=== PATIENT | female | born 1990 | race Two or more races ===

== ENCOUNTER 2019-02-14 12:12 | Inpatient (IN) | payer OTHER ==
[~2019-02-14] VITALS: Ht 164 cm; Wt 81.7 kg
[2019-04-27] MEDS ORDERED: RINGERS SOLUTION,LACTATED 1,000 ML IV ONE (10:41)
[2019-04-27] MEDS ORDERED: PREN-217 PO (10:44)
[2019-04-27] MEDS ORDERED: CITRIC ACID/SODIUM CITRATE 30 ML SOLUTION UDCUP PO ONE (10:45)
[2019-04-27] MEDS ORDERED: METOCLOPRAMIDE HCL 5 MG/ML 2 ML VIAL IVP ONE (10:45)
[2019-04-27 11:24] VITALS: BP 115/75
[2019-04-27 11:27] LABS: BASOPHILS % (AUTO) 0.5 % (0.0-2.0); EOSINOPHILS % (AUTO) 0.4 % (1.0-6.0); HEMATOCRIT 30.1 % (36-46); HEMOGLOBIN 9.6 g/dL (12.0-16.0); LYMPHOCYTES # (AUTO) 1.7 K/uL (1.0-4.8); LYMPHOCYTES % (AUTO) 18.3 % (22.0-44.0); MEAN CORPUSCULAR HEMOGLOBIN 25.5 pg (26.0-34.0); MEAN CORPUSCULAR HGB CONC 31.9 G/dL (31.0-37.0); MEAN CORPUSCULAR VOLUME 80 fL (80-100); MONOCYTES # (AUTO) 0.6 K/uL (0.1-1.0); MONOCYTES % (AUTO) 5.9 % (2.0-9.0); NEUTROPHILS # (AUTO) 7.1 K/uL (1.8-7.7); NEUTROPHILS % (AUTO) 74.9 % (40.0-70.0); PLATELET COUNT (AUTO) 318 K/uL (150-450); RED BLOOD CELL COUNT(AUTO) 3.77 MIL/uL (4.00-5.20); RED CELL DISTRIBUTION WIDTH 16.5 % (11.5-14.5)
[2019-04-27] MEDS ORDERED: FentaNYL CITRATE-PF 100 MCG/2 ML VIAL IVP PRN (13:15)
[2019-04-27] MEDS ORDERED: MEPERIDINE-PF 25 MG/ML VIAL IVP PRN (13:15)
[2019-04-27] MEDS ORDERED: HYDROmorphone 2 MG/ML SYRINGE IVP PRN ×2 (13:15→17:45)
[2019-04-27] MEDS ORDERED: LANOLIN 7 GM OINTMENT TP PRN (15:30)
[2019-04-27] MEDS ORDERED: MEASLES/MUMPS/RUBELLA VACCINE, LIVE 0.5 ML/VIAL SQ ONE (15:30)
[2019-04-27] MEDS: RINGERS SOLUTION,LACTATED 1,000 ML IV SCH (17:39)
[2019-04-27] MEDS ORDERED: ONDANSETRON HCL 4 MG/2 ML VIAL IVP PRN (17:45)
[2019-04-27] MEDS: ACETAMINOPHEN 1000 MG/ISO-OSM 100 ML IV SCH (18:13)
[2019-04-27] MEDS ORDERED: OXYGEN THERAPY IH SCH (20:00)
[2019-04-27] MEDS: MAGNESIUM HYDROXIDE SUSPENSION 30 ML UDCUP PO PRN (23:07)
[2019-04-28] MEDS: RINGERS SOLUTION,LACTATED 1,000 ML IV SCH (00:50)
[2019-04-28] MEDS ORDERED: KETOROLAC TROMETHAMINE 30 MG/ML VIAL IVP PRN (02:00)
[2019-04-28] MEDS: ACETAMINOPHEN 1000 MG/ISO-OSM 100 ML IV SCH (02:10)
[2019-04-28] MEDS ORDERED: FentaNYL CITRATE-PF 100 MCG/2 ML VIAL IVP ONE (05:34)
[2019-04-28] MEDS ORDERED: 0.9% SODIUM CHLORIDE 10 ML VIAL IVP ONE (05:34)
[2019-04-28] MEDS ORDERED: OXYTOCIN 10 UNITS/ML VIAL IM ONE (05:34)
[2019-04-28] MEDS ORDERED: KETOROLAC TROMETHAMINE 60 MG/2 ML VIAL IM ONE (05:34)
[2019-04-28] MEDS ORDERED: EPHEDrine SULFATE 50 MG/ML VIAL IM ONE (05:34)
[2019-04-28] MEDS ORDERED: MORPHINE SULFATE 4 MG/ML SYRINGE IVP ONE (05:34)
[2019-04-28] MEDS ORDERED: ONDANSETRON HCL 4 MG/2 ML VIAL IVP ONE (05:34)
[2019-04-28 06:35] LABS: BASOPHILS % (AUTO) 0.6 % (0.0-2.0); EOSINOPHILS % (AUTO) 0.4 % (1.0-6.0); HEMATOCRIT 24.1 % (36-46); HEMOGLOBIN 7.6 g/dL (12.0-16.0); LYMPHOCYTES # (AUTO) 1.7 K/uL (1.0-4.8); LYMPHOCYTES % (AUTO) 19.1 % (22.0-44.0); MEAN CORPUSCULAR HEMOGLOBIN 25.6 pg (26.0-34.0); MEAN CORPUSCULAR HGB CONC 31.8 G/dL (31.0-37.0); MEAN CORPUSCULAR VOLUME 81 fL (80-100); MONOCYTES # (AUTO) 0.7 K/uL (0.1-1.0); MONOCYTES % (AUTO) 7.4 % (2.0-9.0); NEUTROPHILS # (AUTO) 6.5 K/uL (1.8-7.7); NEUTROPHILS % (AUTO) 72.5 % (40.0-70.0); PLATELET COUNT (AUTO)-OB 237 K/uL (150-450); RED BLOOD CELL COUNT(AUTO) 2.99 MIL/uL (4.00-5.20); RED CELL DISTRIBUTION WIDTH 16.7 % (11.5-14.5)
[2019-04-28] MEDS: MAGNESIUM HYDROXIDE SUSPENSION 30 ML UDCUP PO PRN ×2 (09:00→21:37)
[2019-04-28] MEDS ORDERED: ACETAMINOPHEN/CODEINE 300-30 MG TABLET PO PRN ×2 (15:30)
[2019-04-28] MEDS: IBUPROFEN 800 MG TABLET PO PRN (17:10)
[2019-04-28] MEDS ORDERED: OxyCODONE HCL/ACETAMINOPHEN 10-325 MG TABLET PO PRN (17:45)
[2019-04-29] MEDS: IBUPROFEN 800 MG TABLET PO PRN (00:01)
[2019-04-29] MEDS: MAGNESIUM HYDROXIDE SUSPENSION 30 ML UDCUP PO PRN (08:38)
[2019-04-29] MEDS ORDERED: ACET-2247 PO ×2 (08:58→08:59)
[2019-04-29] MEDS ORDERED: IBUP-2070 PO (09:01)
[2019-04-29] MEDS ORDERED: DSS100 PO (09:02)
[2019-04-29] MEDS ORDERED: PERCT PO (09:03)
== END 2019-04-29 12:45 | disposition home or self-care (01) | DRG 788 ==
LOC: OBSVTOIN 04-27 09:55 → 4S 04-27 09:55
PROVIDERS: ADMIT Obstetrics & Gynecology; ATTEND Obstetrics & Gynecology
PROC: 10D00Z1 Extraction of Products of Conception, Low, Open Approach (ICD-10-PCS; principal; 2019-04-27)
DX: O34.211 Maternal care for low transverse scar from previous cesarean delivery (principal); Z3A.39 39 weeks gestation of pregnancy; Z37.0 Single live birth
CPT/HCPCS: 86850; 86900; 86901; 87081; J0131; J0690; J1885; J2270; J2405; J2590; J2765; J3010; J3490; J7120